=== PATIENT | female | born 1990 | race American Indian/Alaskan Native ===

== ENCOUNTER 2021-05-31 08:39 | Emergency (ER) | payer OTHER ==
[2021-05-31 09:36] VITALS: BP 145/103
--- NOTE | 2021-05-31 10:57 | Emergency Department Report ---
ED General Adult HPI - General Chief complaint: Medical Clearance Stated complaint: FLUID FROM [employer] Time Seen by Provider: 05/31/21 10:19 Source: patient Mode of arrival: Ambulatory Limitations: No Limitations - History of Present Illness Initial comments: Patient is a 30-year-old female presents emergency room with complaints of clear fluid leaking from her umbilicus that began 2 weeks ago. She states that the fluid has an odor. She states that she has been washing frequently but continues to have the liquid drainage and the odor. She denies any fever, nausea, vomiting, diarrhea, chills, abdominal pain. She states that she is also had dry cracked lips to the upper lip. She states that she has been using lip moisturizers without any relief. She denies any blistering or drainage from the lip. No past medical history. No allergies to medicines. Severity scale (0 -10): 0 - Related Data Previous Rx's Medication Instructions Recorded Last Taken Type Clotrimazole 1% [Lotrimin 1%] 1 applic TP BID #1 tube 05/31/21 Unknown Rx Sulfamethoxazole/Trimethoprim 1 each PO BID 7 Days #14 tablet 05/31/21 Unknown Rx [Bactrim DS TAB] Allergies Allergy/AdvReac Type Severity Reaction Status Date / Time No Known Allergies Allergy Unverified 05/31/21 09:33 ED Review of Systems ROS: Stated complaint: FLUID FROM [employer] Other details as noted in HPI Comment: All other systems reviewed and negative ED Past Medical Hx - Past Medical History Previous Medical History?: No - Surgical History Past Surgical History?: No - Medications Home Medications: Home Medications Medication Instructions Recorded Confirmed Last Taken Type Clotrimazole 1% [Lotrimin 1%] 1 applic TP BID #1 tube 05/31/21 Unknown Rx Sulfamethoxazole/Trimethoprim 1 each PO BID 7 Days #14 tablet 05/31/21 Unknown Rx [Bactrim DS TAB] ED Physical Exam - General Limitations: No Limitations General appearance: alert, in no apparent distress - Head Head exam: Present: atraumatic, normocephalic - Eye Eye exam: Present: normal appearance - ENT ENT exam: Present: mucous membranes moist, other (upper lip is dry with small cracks, no blistering, no skin denuding, no scaling, no sign of infection) - Respiratory Respiratory exam: Present: normal lung sounds bilaterally. Absent: respiratory distress, wheezes, rales, rhonchi, stridor, chest wall tenderness, accessory muscle use, decreased breath sounds, prolonged expiratory - Cardiovascular Cardiovascular Exam: Present: regular rate, normal rhythm, normal heart sounds. Absent: systolic murmur, diastolic murmur, rubs, gallop - GI/Abdominal GI/Abdominal exam: Present: soft, normal bowel sounds, other (there is a mild odor from the umbilicus, no edema, no erythema, no increased warmth, no obvious drainage). Absent: distended, tenderness, guarding, rebound, rigid, hernia - Neurological Exam Neurological exam: Present: alert, oriented X3 - Psychiatric Psychiatric exam: Present: normal affect, normal mood - Skin Skin exam: Present: warm, dry ED Course Vital Signs 05/31/21 09:35 Temperature 98.1 F Pulse Rate 75 Respiratory 18 Rate Blood Pressure 145/103 [Right] O2 Sat by Pulse 99 Oximetry ED Medical Decision Making - Medical Decision Making Patient is a 30-year-old female presents emergency room with complaints of clear fluid leaking from her umbilicus that began 2 weeks ago. She states that the fluid has an odor. She states that she has been washing frequently but continues to have the liquid drainage and the odor. She denies any fever, nausea, vomiting, diarrhea, chills, abdominal pain. She states that she is also had dry cracked lips to the upper lip. She states that she has been using lip moisturizers without any relief. She denies any blistering or drainage from the lip. No past medical history. No allergies to medicines. Vitals are stable. On exam:upper lip is dry with small cracks, no blistering, no skin denuding, no scaling, no sign of infection, there is a mild odor from the umbilicus, no edema, no erythema, no increased warmth, no obvious drainage. Lips show no signs of infection and no signs of obvious herpes virus as there is no blistering. Umbilicus does have a clear foul odor drainage, there are no signs of hernia, no edema, no induration, no increased warmth, no signs of abscess. Patient will be placed on antibiotics and given clotrimazole ointment to place in the umbilicus. discussed the importance of outpatient primary care follow-up for reexamination. Advised patient Please use Vaseline or emollient on your upper lip. Please avoid licking the lips or picking at the lips. Increase your water intake. May use a vaporizer. Please use ointment inside and around the be llybutton. Please take medication as prescribed. Follow-up with your primary care doctor. Return to emergency room for any new or worsening symptoms. Critical care attestation.: If time is entered above; I have spent that time in minutes in the direct care of this critically ill patient, excluding procedure time. ED Disposition Clinical Impression: Dry lips, Umbilicus discharge Disposition: [id number] TO HOME OR SELFCARE Is pt being admited?: No Does the pt Need Aspirin: No Condition: Stable Additional Instructions: Please use Vaseline or emollient on your upper lip. Please avoid licking the lips or picking at the lips. Increase your water intake. May use a vaporizer. Please use ointment inside and around the bellybutton. Please take medication as prescribed. Follow-up with your primary care doctor. Return to emergency room for any new or worsening symptoms. Prescriptions: Sulfamethoxazole/Trimethoprim [Bactrim DS TAB] 1 each PO BID 7 Days #14 tablet Clotrimazole 1% [Lotrimin 1%] 1 applic TP BID #1 tube Referrals: JOSHUA JAED MD [Staff Physician] - 3-5 Days [facility] [Provider Group] - 3-[address] [facility] [Outside] - 3-5 Days [facility], [LAB/CONTRACT] - 3-[address] [facility] [Outside] - 3-5 Days Time of Disposition: 10:55 Print Language: NEPALI
== END 2021-05-31 11:30 | disposition home or self-care (01) ==
LOC: ED 08:39
DX: K13.0 Diseases of lips (principal); R19.8 Other specified symptoms and signs involving the digestive system and abdomen; Z79.899 Other long term (current) drug therapy
CPT/HCPCS: 99282